=== PATIENT | female | born 1995 | race Caucasian/White ===

== ENCOUNTER 2024-03-17 23:51 | Inpatient (IN) ==
[2024-03-18 00:50] LABS: ABS Basophils 0.1 10^3/uL (0.0-0.1); ABS Eosinophils 0.3 10^3/uL (0.0-0.5); ABS Lymphocytes 1.8 10^3/uL (1.0-4.8); ABS Monocytes 0.6 10^3/uL (0.0-0.9); ABS Neutrophils 6.5 10^3/uL (1.5-7.6); Hemoglobin 12.9 g/dL (11.5-14.3); Lymphocyte % 19.3 %; Mean Corpuscular Hemoglobin 27.1 pg (27-33); Mean Corpuscular Hgb Conc 33.9 g/dL (31-36); Mean Platelet Volume 9.6 fL (7.5-11.2); Platelet Count 266 10^3/uL (150-450); Red Blood Count 4.74 10^6/uL (3.63-4.92); Red Cell Distribution Width 14.1 % (12-17); White Blood Count 9.1 10^3/uL (3.8-11.8)
[2024-03-18] MEDS: HYDROmorphone 0.5 MG/0.5 ML SYRINGE IV SLOW PU ONE ×2 (01:03→04:45)
[2024-03-18] MEDS: Lactated Ringers 1000 ml BAG 1,000 ML IV ONE ×2 (01:06→16:03)
[2024-03-18 01:38] LABS: ALT 19 U/L (7-52); AST 18 U/L (13-39); Albumin 4.8 g/dL (3.5-5.7); Albumin/Globulin Ratio 1.7 (1-3); Alkaline Phosphatase 103 U/L (35-149); Anion Gap 11 mmol/L (2-16); Blood Urea Nitrogen 16 mg/dL (6-24); C Reactive Protein 13.64 mg/L (<8.01); CO2 Carbon Dioxide 25 mmol/L (22-32); Calcium 9.5 mg/dL (8.6-10.3); Chloride 103 mmol/L (101-111); Creatinine, Serum 0.93 mg/dL (0.51-0.95); Globulin 2.9 g/dL (2-4); Glucose 93 mg/dL (70-100); Lipase 20 U/L (11.0-82.0); Potassium 3.9 mmol/L (3.5-5.0); Sodium 139 mmol/L (135-145); Total Bilirubin 0.4 mg/dL (0.2-1.0); Total Protein 7.7 g/dL (6.4-8.9); eGFR CKD-EPI 84.8 (>60)
[2024-03-18 01:43] LABS: HCG Pregnancy < 0.60 mIU/mL
[2024-03-18] MEDS: Al Hydrox/Mg Hydrox/Simet LIQ 30 ML UDC PO ONE ×2 (01:43→06:05)
[2024-03-18] MEDS: Pantoprazole VIAL 40 MG VIAL IV SCH (09:30)
[2024-03-18] MEDS: Acetaminophen IV 1 GM/100ML 1,000 MG/100 ML BAG IV PRN (09:30)
[2024-03-18] MEDS: Iohexol 350 (CONTRAST) 500 ML MDV IV ONE (10:51)
[2024-03-18] MEDS: D5LR 1000 ml BAG 1,000 ML IV SCH (11:43)
[2024-03-18] MEDS ORDERED: Midazolam 10 mg/10 ml VIAL 1 mg/ml 10 ml VIAL (10 mg) ONE (13:54)
[2024-03-18] MEDS ORDERED: fentaNYL 100 mcg/2 ml 50 MCG/ML VIAL ONE (13:54)
[2024-03-18 14:12] LABS: ABS Eosinophils 0.1 10^3/uL (0.0-0.5); ABS Lymphocytes 1.1 10^3/uL (1.0-4.8); ABS Monocytes 0.4 10^3/uL (0.0-0.9); Eosinophil % 2.3 %; Hematocrit 34.7 % (35-45); Hemoglobin 11.9 g/dL (11.5-14.3); Lymphocyte % 23.1 %; Mean Corpuscular Hemoglobin 27.7 pg (27-33); Mean Corpuscular Hgb Conc 34.4 g/dL (31-36); Mean Corpuscular Volume 80.5 fL (80-97); Mean Platelet Volume 9.5 fL (7.5-11.2); Platelet Count 190 10^3/uL (150-450); Red Blood Count 4.31 10^6/uL (3.63-4.92); Red Cell Distribution Width 14.1 % (12-17); White Blood Count 4.6 10^3/uL (3.8-11.8)
[2024-03-18 15:02] LABS: Albumin 4.1 g/dL (3.5-5.7); Albumin/Globulin Ratio 1.6 (1-3); C Reactive Protein 13.98 mg/L (<8.01); Calcium 8.7 mg/dL (8.6-10.3); Creatinine, Serum 0.75 mg/dL (0.51-0.95); Globulin 2.5 g/dL (2-4); Potassium 4.1 mmol/L (3.5-5.0); Total Bilirubin 0.5 mg/dL (0.2-1.0); Total Protein 6.6 g/dL (6.4-8.9); eGFR CKD-EPI 109.8 (>60)
[2024-03-18] MEDS: Al Hydrox/Mg Hydrox/Simet LIQ 30 ML UDC PO PRN (16:01)
[2024-03-18] MEDS: fentaNYL 100 mcg/2 ml 50 MCG/ML VIAL IV SLOW PU ONE (16:02)
[2024-03-18] MEDS: HYDROmorphone 1 MG/1 ML SYRINGE IV SLOW PU PRN (16:02)
[2024-03-18] MEDS: Midazolam 10 mg/10 ml VIAL 1 mg/ml 10 ml VIAL (10 mg) IV SLOW PU ONE (16:03)
[2024-03-18] MEDS: Sucralfate 1 gm SUSP 1 GM/10 ML UDC PO SCH (17:12)
[2024-03-18] MEDS: Iohexol 300 (CONTRAST) 10 ML SDV IV ONE (19:17)
[2024-03-18] MEDS: Nystatin TOP POWDER 15 GM BTL TOPICAL PRN (23:01)
[2024-03-19] MEDS: HYDROmorphone 1 MG/1 ML SYRINGE IV SLOW PU PRN ×2 (08:43→17:11)
[2024-03-19] MEDS: ACYCLOVIR IVPB SCH (12:02)
[2024-03-19] MEDS: NS 0.9% IVPB SCH (12:02)
[2024-03-20 06:18] LABS: ABS Basophils 0.1 10^3/uL (0.0-0.1); ABS Eosinophils 0.2 10^3/uL (0.0-0.5); ABS Lymphocytes 2.3 10^3/uL (1.0-4.8); ABS Monocytes 0.7 10^3/uL (0.0-0.9); Eosinophil % 2.8 %; Hematocrit 36.9 % (35-45); Hemoglobin 12.3 g/dL (11.5-14.3); Lymphocyte % 36.6 %; Mean Corpuscular Hemoglobin 26.6 pg (27-33); Mean Corpuscular Hgb Conc 33.2 g/dL (31-36); Mean Corpuscular Volume 79.9 fL (80-97); Mean Platelet Volume 9.5 fL (7.5-11.2); Platelet Count 234 10^3/uL (150-450); Red Blood Count 4.62 10^6/uL (3.63-4.92); Red Cell Distribution Width 13.9 % (12-17); White Blood Count 6.2 10^3/uL (3.8-11.8)
[2024-03-20 08:08] LABS: Anion Gap 10 mmol/L (2-16); Blood Urea Nitrogen 8 mg/dL (6-24); CO2 Carbon Dioxide 27 mmol/L (22-32); Calcium 9.3 mg/dL (8.6-10.3); Chloride 100 mmol/L (101-111); Creatinine, Serum 0.88 mg/dL (0.51-0.95); Glucose 93 mg/dL (70-100); Sodium 137 mmol/L (135-145); eGFR CKD-EPI 90.6 (>60)
[2024-03-20] MEDS: Hemorrhoidal OINT 1 TUBE PR PRN (08:41)
[2024-03-20] MEDS: Ondansetron 4 mg VIAL 2 MG/ML 2 ml VIAL IV PRN (13:40)
[2024-03-20] MEDS ORDERED: HYDROmorphone 1 MG/1 ML SYRINGE IV SLOW PU PRN (20:27)
[2024-03-21] MEDS: Acetaminophen IV 1 GM/100ML 1,000 MG/100 ML BAG IV PRN (00:12)
[2024-03-21] MEDS: NS 0.9% 500 ml BAG 500 ML IV ONE (09:28)
[2024-03-22 05:56] LABS: ABS Eosinophils 0.3 10^3/uL (0.0-0.5); ABS Lymphocytes 1.6 10^3/uL (1.0-4.8); ABS Monocytes 0.6 10^3/uL (0.0-0.9); ABS Neutrophils 3.7 10^3/uL (1.5-7.6); Eosinophil % 4.4 %; Hematocrit 32.7 % (35-45); Hemoglobin 11.1 g/dL (11.5-14.3); Lymphocyte % 25.6 %; Mean Corpuscular Hemoglobin 27.4 pg (27-33); Mean Corpuscular Hgb Conc 33.8 g/dL (31-36); Mean Platelet Volume 9.6 fL (7.5-11.2); Platelet Count 200 10^3/uL (150-450); Red Blood Count 4.04 10^6/uL (3.63-4.92); Red Cell Distribution Width 14.3 % (12-17); White Blood Count 6.2 10^3/uL (3.8-11.8)
[2024-03-22 06:18] LABS: Albumin 3.8 g/dL (3.5-5.7); Albumin/Globulin Ratio 1.8 (1-3); C Reactive Protein 14.75 mg/L (<8.01); Calcium 8.6 mg/dL (8.6-10.3); Creatinine, Serum 0.68 mg/dL (0.51-0.95); Globulin 2.1 g/dL (2-4); Potassium 3.8 mmol/L (3.5-5.0); Total Bilirubin 0.3 mg/dL (0.2-1.0); Total Protein 5.9 g/dL (6.4-8.9); eGFR CKD-EPI 120.1 (>60)
[2024-03-22] MEDS: HYDROmorphone 1 MG/1 ML SYRINGE IV SLOW PU PRN ×2 (11:03→12:26)
[2024-03-22] MEDS: Lactated Ringers 1000 ml BAG 1,000 ML IV SCH (23:19)
[2024-03-23 07:30] LABS: ALT 233 U/L (7-52); Albumin 3.6 g/dL (3.5-5.7); Albumin/Globulin Ratio 1.6 (1-3); Alkaline Phosphatase 241 U/L (35-149); Anion Gap 7 mmol/L (2-16); Blood Urea Nitrogen 8 mg/dL (6-24); CO2 Carbon Dioxide 30 mmol/L (22-32); Calcium 8.9 mg/dL (8.6-10.3); Chloride 101 mmol/L (101-111); Creatinine, Serum 0.84 mg/dL (0.51-0.95); Globulin 2.3 g/dL (2-4); Glucose 119 mg/dL (70-100); Sodium 138 mmol/L (135-145); Total Bilirubin 0.3 mg/dL (0.2-1.0); Total Protein 5.9 g/dL (6.4-8.9); eGFR CKD-EPI 95.8 (>60)
[2024-03-23 09:14] LABS: Potassium Redraw 4.2 mmol/L (3.5-5.0)
[2024-03-23 11:22] LABS: ABS Eosinophils 0.2 10^3/uL (0.0-0.5); ABS Lymphocytes 1.3 10^3/uL (1.0-4.8); ABS Monocytes 0.6 10^3/uL (0.0-0.9); ABS Nucleated RBC 0.01 10^3/ul; Eosinophil % 2.9 %; Hematocrit 34.1 % (35-45); Hemoglobin 11.5 g/dL (11.5-14.3); Lymphocyte % 17.9 %; Mean Corpuscular Hemoglobin 27.2 pg (27-33); Mean Corpuscular Hgb Conc 33.8 g/dL (31-36); Mean Corpuscular Volume 80.5 fL (80-97); Mean Platelet Volume 9.8 fL (7.5-11.2); Nucleated Red Blood Cells % 0.1 %/100WBC (0.0-0.8); Platelet Count 215 10^3/uL (150-450); Red Blood Count 4.24 10^6/uL (3.63-4.92); Red Cell Distribution Width 14.3 % (12-17); White Blood Count 7.1 10^3/uL (3.8-11.8)
[2024-03-23] MEDS ORDERED: Ondansetron 4 mg VIAL 2 MG/ML 2 ml VIAL IV PRN (12:11)
[2024-03-23] MEDS ORDERED: Naloxone 0.4 mg VIAL 0.4 mg/ml 1 ml VIAL IV PRN (12:11)
[2024-03-23] MEDS ORDERED: fentaNYL 100 mcg/2 ml 50 MCG/ML VIAL IV PRN (12:11)
[2024-03-23] MEDS ORDERED: NS 0.45% 1000 ml BAG 1,000 ML IV SCH (13:00)
[2024-03-23 13:11] LABS: Hepatitis B Surface Antigen Nonreactive (Nonreactive)
[2024-03-23 13:16] LABS: Hepatitis A Ab IgM Negative (Negative)
[2024-03-23 13:17] LABS: Hepatitis B Core IgM Nonreactive (Nonreactive)
[2024-03-23 13:29] LABS: Hepatitis C Antibody Negative (Negative)
[2024-03-23] MEDS ORDERED: Propofol 10 mg/ml 100 ML BTL 1,000 MG/100 ML BTL ONE (13:44)
[2024-03-23] MEDS ORDERED: Propofol 10 MG/ML 20 ML BTL ONE (13:57)
[2024-03-23] MEDS ORDERED: Lidocaine 2% PF 5 ML VIAL ONE (13:57)
[2024-03-23] MEDS ORDERED: Phenylephrine 40 mcg/mL 10mL (400mcg) SYRINGE ONE (14:23)
[2024-03-23] MEDS: Acetaminophen IV 1 GM/100ML 1,000 MG/100 ML BAG IV ONE (16:01)
[2024-03-23] MEDS: Buffered Lidocaine 1% SYRIN 1 ml INTRADERM ONE (16:01)
[2024-03-23] MEDS: Scopolamine 1 mg/72hr PATCH TRANSDERM ONE (16:02)
[2024-03-23] MEDS: HYDROmorphone 1 MG/1 ML SYRINGE IV ONE (17:16)
[2024-03-23 20:20] LABS: Urine Appearance Clear; Urine Bilirubin Negative (Negative); Urine Blood Negative (Negative); Urine Color Yellow; Urine Glucose Negative (Negative); Urine Ketones Negative (Negative); Urine Nitrite Negative (Negative); Urine Protein Negative (Negative); Urine Specific Gravity 1.014 (1.002-1.030); Urine Urobilinogen Negative (Negative)
[2024-03-24] MEDS: Lactated Ringers 1000 ml BAG 1,000 ML IV SCH (05:04)
[2024-03-24 06:15] LABS: Albumin 3.9 g/dL (3.5-5.7); Albumin/Globulin Ratio 1.7 (1-3); Calcium 9.1 mg/dL (8.6-10.3); Creatinine, Serum 0.79 mg/dL (0.51-0.95); Globulin 2.3 g/dL (2-4); Potassium 4.4 mmol/L (3.5-5.0); Total Bilirubin 0.4 mg/dL (0.2-1.0); Total Protein 6.2 g/dL (6.4-8.9); eGFR CKD-EPI 103.1 (>60)
[2024-03-24 18:24] LABS: Immunoglobulin G 986 mg/dL (767 - 1590); Immunoglobulin M 106 mg/dL (37 - 286)
[2024-03-24] MEDS: NS 0.9% 500 ml BAG 500 ML IV ONE (23:19)
[2024-03-25] MEDS: oxyCODONE SR 10 mg TAB PO SCH (11:09)
[2024-03-25] MEDS: HYDROmorphone 1 MG/1 ML SYRINGE IV SLOW PU PRN (14:14)
[2024-03-25 17:04] LABS: CMV DNA DETECT/QT, P Undetected IU/mL (Undetected)
[2024-03-25] MEDS: Enoxaparin 40 MG/0.4 ML SYR SUBCUT SCH (21:25)
[2024-03-26 07:53] LABS: ABS Eosinophils 0.2 10^3/uL (0.0-0.5); ABS Lymphocytes 1.6 10^3/uL (1.0-4.8); ABS Monocytes 0.6 10^3/uL (0.0-0.9); ABS Neutrophils 3.8 10^3/uL (1.5-7.6); ABS Nucleated RBC 0.01 10^3/ul; Eosinophil % 3.8 %; Mean Corpuscular Hemoglobin 27.9 pg (27-33); Mean Corpuscular Hgb Conc 34.2 g/dL (31-36); Mean Corpuscular Volume 81.7 fL (80-97); Mean Platelet Volume 10.4 fL (7.5-11.2); Nucleated Red Blood Cells % 0.1 %/100WBC (0.0-0.8); Platelet Count 205 10^3/uL (150-450); Red Blood Count 4.28 10^6/uL (3.63-4.92); Red Cell Distribution Width 14.6 % (12-17); White Blood Count 6.2 10^3/uL (3.8-11.8)
[2024-03-26 08:21] LABS: Albumin 3.7 g/dL (3.5-5.7); Albumin/Globulin Ratio 1.6 (1-3); Calcium 8.8 mg/dL (8.6-10.3); Creatinine, Serum 0.74 mg/dL (0.51-0.95); Globulin 2.3 g/dL (2-4); Magnesium 1.9 mg/dL (1.9-2.7); Total Bilirubin 0.3 mg/dL (0.2-1.0); eGFR CKD-EPI 111.6 (>60)
[2024-03-26] MEDS: Al Hydrox/Mg Hydrox/Simet LIQ 30 ML UDC PO SCH (08:43)
[2024-03-26] MEDS: HYDROmorphone 1 MG/1 ML SYRINGE IV SLOW PU PRN (12:04)
[2024-03-26] MEDS: HYDROmorphone 1 MG/1 ML SYRINGE IV SLOW PU ONE ×2 (17:53→23:38)
[2024-03-27] MEDS: oxyCODONE 5 mg/5 ml ORAL.SOLN UDC PO ONE (02:49)
[2024-03-27] MEDS: Sucralfate 1 gm SUSP 1 GM/10 ML UDC PO ONE (02:50)
[2024-03-27] MEDS: hydrOXYzine LIQ ORALSYR 2 MG/ML PO ONE (04:25)
[2024-03-27 09:32] LABS: HSV 1 PCR, B Negative (Negative); HSV 2 PCR, B Negative (Negative)
[2024-03-27 18:08] VITALS: BP 103/58
== END 2024-03-27 20:25 | disposition home or self-care (01) | DRG 813 ==
LOC: EDHOLD 23:51 → ED 23:51 → MEDTELE 03-18 08:13 → SUATTDRO 03-19 12:00
PROVIDERS: ADMIT Internal Medicine; ATTEND Student in an Organized Health Care Education/Training Program
PROC: O.GIEGD (2024-03-23 14:35)